=== PATIENT | female | born 1975 | race Caucasian/White ===

== ENCOUNTER 2017-11-08 15:24 | Emergency (ER) | payer OTHER ==
[~2017-11-08] VITALS: Ht 172.7 cm; Wt 97.5 kg
[~2017-11-08 15:24] MED LIST: ADVAIR 250-501 EACH IH; ALBUTEROL INHAL17 GM IH; DAILY VALUE1 EACH PO; FISH OIL 1,0001 EAC5 PO; VITAMIN D1000 UNI1 PO; ZOLOFT 50 MG TA50 M1 PO
[2017-11-08] MEDS ORDERED: PROZAC20 MG PO (15:32)
[2017-11-08 16:35] LABS: INFLUENZA A ANTIGEN None Detected (None Detect); INFLUENZA B ANTIGEN None Detected (None Detect)
[2017-11-08] MEDS ORDERED: PROAIR HFA8.5 GM INH (16:55)
[2017-11-08] MEDS ORDERED: PREDNISONE 20 M20 M1 PO (16:55)
[2017-11-08 17:44] VITALS: BP 134/80
== END 2017-11-08 17:45 | disposition home or self-care (01) ==
LOC: M.ERS 15:24
PROVIDERS: Nurse Practitioner Family
DX: J20.9 Acute bronchitis, unspecified (principal); J45.909 Unspecified asthma, uncomplicated